=== PATIENT | male | born 1995 | race Caucasian/White ===

== ENCOUNTER → 2018-03-29 | Outpatient (CLI) | payer BC ==
[~2018-03-29] MED LIST: DEXTROSE 5%(*) 100 ML BAG 100 ML IVPB PRN; LIDOCAINE/SOD BICARB 8.4% SYR ID PRN; NS(*) 0.9% 100 ML BAG 100 ML IVPB PRN
[2018-03-29 13:15] VITALS: BP 159/80
[2018-03-29 13:54] VITALS: BP 140/57
== END ==
LOC: SPU 13:07
PROVIDERS: ATTEND Family Medicine
DX: E83.19 Other disorders of iron metabolism (principal)
CPT/HCPCS: 85018

== ENCOUNTER 2018-04-14 17:45 | Emergency (ER) | payer BC ==
[2018-04-14 18:06] VITALS: BP 168/74
--- NOTE | 2018-04-14 18:11 | ER Report ---
History and Physical Time Seen By MD: 18:10 Hx. of Stated Complaint: PT FELL SKIING AND FELT L KNEE POP HPI/ROS CHIEF COMPLAINT: knee injury HISTORY OF PRESENT ILLNESS: This is a 22 year old male. He fell and twisted his left knee while skiing today. Medial side pain with hearing and feeling a pop. Hurts to move, but can do so. Normal sensation distally. No prior knee problems. Allergies: Coded Allergies: No Known Drug Allergies (Unverified , 04/14/18) Home Meds Active Scripts Hydrocodone Bit/Acetaminophen (HYDROCODON-ACETAMINOPHEN 5-325) 1 Each Tablet, 1 EACH PO Q4H PRN for PAIN, #12 TAB 0 Refills Prov:GENEVA JONES MD 04/14/18 Reviewed Nurses Notes: Yes Constitutional Vital Sign - Last 24 Hours 04/14/18 04/14/18 04/14/18 04/14/18 18:00 18:05 18:06 18:15 Temp 98.5 Pulse ??? 98 92 Resp 16 B/P (MAP) 168/74 168/74 (105) Pulse Ox 92 92 04/14/18 04/14/18 04/14/18 04/14/18 18:30 18:45 19:00 19:15 Pulse 92 99 102 98 Pulse Ox 96 94 91 92 04/14/18 19:30 Pulse 103 Pulse Ox 92 Physical Exam General appearance: Alert no distress. Musculoskeletal: Left knee shows no significant swelling. There is no effusion. There is no obvious deformity of the knee. Patella had no pain. Medial jointline is tender to palpation. Lateral jointline is nontender to palpation. Jamaal is equivocal, with guarding. The joint is stable with no comparable ligamentous laxity to the knee. Neurologic: The patient has normal sensation distal to the injury. Cardiovascular: Normal pulses and capillary refill in the foot Skin: No rashes. Closed. DIFFERENTIAL DIAGNOSIS: After history and physical exam differential diagnosis was considered for knee injury including sprain, fracture, meniscus injury and soft tissue injury. Medical Decision Making EKG/Imaging Imaging INDICATION: left knee injury, skiing, medial pain. DATE: 04/14/2018 7:24 PM. TECHNIQUE: KNEE 4 VIEW LEFT COMPARISON: None FINDINGS: Normal alignment. No fracture. There is an effusion that overlaps with the quadriceps musculature on the lateral view. IMPRESSION: No acute osseous abnormality. An effusion could reflect an underlying ligamentous injury. Report Dictated By: Chadd Kirkpatrick MD at 04/14/2018 7:24 PM ED Course/Re-evaluation ED Course Reviewed with Dr. Greene who stopped by the ER after another case. No bony injury noted on imaging. Knee immobilizer, ice, crutches and conservative measures. Follow-up with [facility] Decision to Disposition Date: Apr 14, 2018 Decision to Disposition Time: 19:40 Depart Departure Latest Vital Signs Vital Signs Date Time Temp Pulse Resp B/P (MAP) Pulse Ox O2 Delivery O2 Flow Rate FiO2 04/14/18 19:30 103 92 04/14/18 18:06 168/74 (105) 04/14/18 18:05 98.5 16 Impression: Primary Impression: Left knee injury Condition: Improved Disposition: HOME OR SELF-CARE New Scripts Hydrocodone Bit/Acetaminophen (HYDROCODON-ACETAMINOPHEN 5-325) 1 Each Tablet 1 EACH PO Q4H PRN for PAIN, #12 TAB 0 Refills Prov: GENEVA JONES MD 04/14/18 Patient Instructions: Knee Immobilizer (DC), Knee Sprain (ED) Additional Instructions: No signs of fracture on x-ray, concern for possibility of ligamentous injury versus strain. Ibuprofen 200mg over the counter tablets, take 4 tablets three times a day with food. Lortab 5/325, one every 4 hours as needed for pain. Apply ice 20 minutes every 1-2 hours while awake. Knee immobilizer with crutches. Follow up with [facility], call them in the morning for an appointment. Rest the injured area, keep it elevated while at rest. Problem Qualifiers Primary Impression: Left knee injury Encounter type: initial encounter Qualified Codes: S89.92XA - Unspecified injury of left lower leg, initial encounter GENEVA JONES MD Apr 14, 2018 18:11
--- NOTE | 2018-04-14 19:29 | RADIOLOGY IMAGING REPORT ---
FACILITY: [facility] PATIENT NAME: Boni Canas : 1995 MR: [id number] V: [id number] EXAM DATE: ORDERING PHYSICIAN: GENEVA JONES TECHNOLOGIST: [place] [facility] [place]i [place] : 1995 Visit/Account:[id number] Date of Sevice: 04/14/2018 INDICATION: left knee injury, skiing, medial pain. DATE: 04/14/2018 7:24 PM. TECHNIQUE: KNEE 4 VIEW LEFT COMPARISON: None FINDINGS: Normal alignment. No fracture. There is an effusion that overlaps with the quadriceps muscu lature on the lateral view. IMPRESSION: No acute osseous abnormality. An effusion could reflect an underlying ligamentous injury. Report Dictated By: Chadd Kirkpatrick MD at 04/14/2018 7:24 PM Report E-Signed By: Chadd Kirkpatrick MD at 04/14/2018 7:25 PM WSN:[id number]
[2018-04-14] MEDS ORDERED: IBUPROFEN 800 MG TAB PO ONE (19:35)
[2018-04-14] MEDS ORDERED: APAP/HYDROCODONE 325/5 TAB PO ONE (19:35)
[2018-04-14] MEDS ORDERED: ACET/HYDROC 5/325MG TH ER ONLY 2 TAB/BOTTLE PO ONE (19:40)
[2018-04-14] MEDS ORDERED: LOR5/325 PO (19:41)
== END 2018-04-14 19:46 | disposition home or self-care (01) ==
LOC: ER 18:22
DX: S89.92XA Unspecified injury of left lower leg, initial encounter (principal); M25.562 Pain in left knee; Y93.23 Activity, snow (alpine) (downhill) skiing, snowboarding, sledding, tobogganing and snow tubing
CPT/HCPCS: 73564; 99283; L1830

== ENCOUNTER 2018-06-07 12:20 | Outpatient (RCR) | payer BC ==
[2018-04-12 12:20] VITALS: BP 154/74
[2018-04-12] MEDS: LIDOCAINE/SOD BICARB 8.4% SYR ID PRN (12:47)
[2018-04-12 13:36] VITALS: BP 118/57
[2018-04-26 12:35] VITALS: BP 164/80
[2018-04-26 12:45] LABS: PLATELET COUNT, AUTOMATED 251 K/uL (150-450)
[2018-04-26] MEDS: LIDOCAINE/SOD BICARB 8.4% SYR ID PRN (13:07)
[2018-04-26 13:11] VITALS: BP 136/72
[2018-05-08 13:21] VITALS: BP 136/81
[2018-05-08 14:27] VITALS: BP 153/83
[2018-05-08] MEDS: LIDOCAINE/SOD BICARB 8.4% SYR ID PRN (14:58)
[2018-05-24 12:17] VITALS: BP 166/82
[2018-05-24 13:00] VITALS: BP 132/76
[~2018-06-07 12:20] MED LIST changes: -DEXTROSE 5%(*) 100 ML BAG 100 ML IVPB PRN; -LIDOCAINE/SOD BICARB 8.4% SYR ID PRN; +LOR5/325 PO; -NS(*) 0.9% 100 ML BAG 100 ML IVPB PRN
[2018-06-07] MEDS: LIDOCAINE/SOD BICARB 8.4% SYR ID PRN (12:45)
[2018-06-07 14:30] VITALS: BP 153/75
[2018-06-07 14:31] VITALS: BP 150/80
== END 2018-07-11 ==
LOC: SPU 12:20
PROVIDERS: ATTEND Family Medicine
DX: E83.19 Other disorders of iron metabolism (principal)
CPT/HCPCS: 82728; 85014; 85018; 85025; 99195